=== PATIENT | female | born 1945 | race Caucasian/White ===

== ENCOUNTER 2019-08-30 17:08 | Inpatient (IN) | payer MEDICARE ==
[2019-08-30 17:52] VITALS: BMI 38.7
[2019-08-30 18:09] LABS: Absolute Lymphocytes (CBC) 1.8 K/uL (0.7-4.9); Basophils % 1.2 % (0-1.3); Hematocrit 39.7 % (36.0-45.0); Lymphocytes % 26.4 % (15.3-44.8); MPV 9.8 fL (7.6-11.3); RBC Red Blood Cell Count 4.33 M/uL (3.86-4.86)
[2019-08-30] MEDS: RIVAROXABAN 20 MG TABLET PO SCH (18:15)
[2019-08-30] MEDS: SOTALOL HCL 80 MG TAB PO SCH (18:15)
[2019-08-30 18:49] LABS: ALT/SGPT 35 U/L (12-78); AST/SGOT 20 U/L (15-37); Albumin 4.1 g/dL (3.4-5.0); Alkaline Phosphatase 70 U/L (45-117); BUN Blood Urea Nitrogen 21 mg/dL (7-18); Bicarbonate 25 mmol/L (21-32); Bilirubin Total 0.7 mg/dL (0.2-1.0); CKMB Creatine Kinase MB 1.4 ng/mL (0.3-3.6); Creatine Phosphokinase 70 U/L (26-192); Glucose Level 99 mg/dL (74-106); Magnesium 2.2 mg/dL (1.8-2.4); NT PRO-BNP 4380 pg/mL (<125); Protein, Total 7.5 g/dL (6.4-8.2); Sodium Level 142 mmol/L (136-145); Troponin I < 0.02 ng/mL (0.0-0.045)
--- NOTE | 2019-08-30 19:32 | RAD REPORT ---
EXAM DESCRIPTION: RAD - Chest Pa And Lat (2 Views) - 08/30/2019 6:44 pm CLINICAL HISTORY: Afib COMPARISON: June 2018 TECHNIQUE: Frontal and lateral views of the chest were obtained. FINDINGS: The lungs are normal volume. No new mass or consolidation. Numerous small granulomata agai n noted. Heart size is normal and central vasculature is within normal limits. No pleural effusion or pneumothorax seen. No acute bony finding noted. No aortic abnormality. IMPRESSION: No acute cardiopulmonary process. Numerous small granulomatous similar to comparison.
--- OUTSIDE RECORDS SUMMARY | 2019-08-30 19:58 | XMS REPORT | Clinical Summary ---
:1945 Author Organization [facility] Address [address] [place] [id number] Care Team Providers Name Role Phone Keyon Lopez MD Primary Care Provider Allergies No Known Allergies Medications Medication Sig Dispensed Refills Start Date End Date Status levothyroxine Take 25 mcg by 0 A ctive (SYNTHROID, LEVOXYL) 25 mouth every mcg tablet morning. At 6 am rivaroxaban (XARELTO) 20 Take 20 mg by 0 Active mg tablet mouth daily. amIODarone (PACERONE) Take 400 mg by 0 Active 400 MG tablet mouth daily. METOPROLOL SUCCINATE Take 25 mg by 0 Active ORAL mouth 2 (two) times a day. furosemide (LASIX) 20 mg Take 1 tablet 0 09/20/2016 Active tablet (20 mg total) by mouth daily. 2 tabs daily for 4 days then resume to 1 tab daily Active Problems Problem Noted Date Atrial fibrillation 09/19/2016 A-fib 05/25/2016 Immunizations Name Administration Dates Next Due FLUZONE QUAD PF 05/27/2016 Pneumococcal Conjugate 13-Valent 05/27/2016 Family History Medical History Relation Name Comments Stroke Father Hypertension Mother Stroke Mother Relation Name Status Comments Father Mother Social History Tobacco Use Types Packs/Day Years Used Date Former Smoker Comments: quit Alcohol Use Drinks/Week oz/Week Comments Yes 1 Glasses of wine 1.0 Sex Assigned at Date Recorded Not on file Job Start Date Occupation Industry Not on file Not on file Not on file Travel History Travel Start Travel End No recent travel history available. Last Filed Vital Signs Not on file Plan of Treatment Health Maintenance Due Date Last Done Comments BREAST CANCER SCREENING 1996 COLONOSCOPY SCREENING 1996 SHINGLES VACCINES (#1) 1996 65+ PNEUMOCOCCAL VACCINE (2 of 2 - PPSV23) 05/27/201705/27 INFLUENZA VACCINE 10/16/2019 05/27/2016 Results Not on fileafter 08/29/2018 Advance Directives For more information, please contact: [phone] Type Date Recorded Patient Hand Cigar Maker Explanati on Advance Directives, Living Will 09/19/2016 6:17 AM and Medical Power of Field Support Rep
[2019-08-30] MEDS ORDERED: ACETAMINOPHEN PO PRN (21:43)
[2019-08-30] MEDS ORDERED: PYRIDOXINE PO PRN (21:43)
[2019-08-30] MEDS ORDERED: DIPHENHYDRAMINE PO PRN (21:43)
[2019-08-30] MEDS ORDERED: MELATONIN PO PRN (21:43)
[2019-08-30] MEDS ORDERED: MELATONIN 5 MG TABLET PO PRN (23:53)
--- NOTE | 2019-08-31 02:08 | HP ---
Date of Admission: 08/30/2019 Chief Complaint: Shortness of breath and heart racing feeling. History Of Present Illness: This is a 74-year-old pleasant female patient with prior history of paroxysmal atrial fibrillation, takes metoprolol and Xarelto regularly with usual medications. The patient says that in last 3 weeks or so, she was feeling tired and short of breath with normal day-to-day activity. Her tiredness got better since she started doing some regular walking exercise in her house, but shortness of breath with day-to-day activity has not improved any at all. Denies any chest pain. No paroxysmal nocturnal dyspnea or orthopnea. Says that she has gained about 10 pounds weight lately and she bought a new blood pressure machine over the weekend as of Friday and she noted that her blood pressure monitor started reporting irregular heartbeat and her heart rate would go up to 140-150, usually at home. She came into office today. After she was evaluated, she was admitted to the hospital with atrial fibrillation with rapid ventricular rate. Her heart rate in the office was 163 per minute and it was irregular. She hemodynamically she was stable. Allergies: NO KNOWN ALLERGIES. Medications: Atorvastatin 10 mg daily, Caltrate plus D 1 tablet p.o. 2 times a day, Xarelto 20 mg p.o. daily in evening, metoprolol succinate 25 mg p.o. daily, levothyroxine 50 mcg p.o. daily. Review of Systems: Cardiovascular: As mentioned above. Constitutional: As mentioned above. Respiratory: As mentioned above. All other systems reviewed and negative. Past Medical History: Hypothyroidism, type 2 diabetes mellitus, pulmonary nodule, obstructive sleep apnea, hypertension, hyperlipidemia, paroxysmal atrial fibrillation, diverticulosis, osteoarthritis at multiple sites. Past Surgical History: Ablation done for atrial fibrillation in 2017 and hysterectomy. Family History: Father , had dementia, seizure and stroke. Mother , had stroke. Social History: Prior history of smoking, not at present time. Use of alcohol: Negative. Physical Examination: Vital Signs: At office, blood pressure 118/89, pulse 163, temperature 97.9, respiratory rate 16, weight 241 pounds, height 66 inches. General: Awake, alert, oriented, not in distress. HEENT: Head atraumatic, normocephalic. Conjunctivae nonerythematous. Sclerae white. Mouth, no thrush or edema noted. Ears/Nose, no mass, lesion, discharge noted. Neck: Supple. No JVD, lymph nodes, bruit, thyromegaly noted. Lungs: Bilateral good equal air entry. Clear to auscultation. No rhonchi. No rales. Heart/Cardiovascular: The patient's heart rate is rapid it is irregular. Abdomen: Soft, bowel sounds normal. No guarding, rigidity, tenderness, mass, hepatosplenomegaly, distention, or bruit noted. Extremities: No leg edema. No calf tenderness. Skin: No rash, ulcer, cellulitis. Lymphatics: No lymph node enlargement in neck, supraclavicular, infraclavicular region. Neuro: No focal neurological deficit. Chest: Unremarkable. External Genitalia: Deferred. Rectal: Deferred. Laboratory Data: EKG showing atrial fibrillation. White count 7, hemoglobin 13.2, platelets 205. Sodium 142, potassium 4, chloride 109, bicarb 25, glucose 99, BUN 21, creatinine 0.90, liver function tests normal, BNP 4380, TSH 3.310, CPK 70, CK-MB 1.4, troponin less than 0.02. Impression: 1. Atrial fibrillation with rapid ventricular rate. 2. Hypothyroidism. 3. Hypertension. 4. Hyperlipidemia. 5. Type 2 diabetes mellitus. 6. Hypothyroidism. 7. Obstructive sleep apnea. 8. Osteoarthritis, multiple sites. 9. Diverticulosis. Plan: Admit patient to hospital for further evaluation management of this problem. Patient is appropriate for inpatient and is expected to spend 2 midnights in hospital. We will keep her on ekg monitor tech. Cardiology consultation was requested from Dr. Noble and details were discussed with him. We will start patient on sotalol 80 mg twice a day first dose was given soon after admission. We will get echo with Doppler to evaluate her left ventricular ejection fraction. Xarelto will be continued per order and other home medications will be continued per order. Details and plan of treatment discussed with the patient. RADHA/MODL Voice ID: [id number] LIZETH
[2019-08-31] MEDS: LEVOTHYROXINE SOD 0.05 MG TABLET PO SCH (05:42)
[2019-08-31] MEDS ORDERED: ACETAMINOPHEN 500 MG TAB PO PRN (08:02)
[2019-08-31] MEDS ORDERED: DIPHENHYDRAMINE 25 MG TAB/CAP PO PRN (08:03)
[2019-08-31] MEDS: SOTALOL HCL 80 MG TAB PO SCH ×2 (08:43→20:52)
[2019-08-31] MEDS: RIVAROXABAN 20 MG TABLET PO SCH (16:26)
--- NOTE | 2019-08-31 17:29 | PN ---
Ms. Ladd was admitted to Dr. Lopez on 08/30/2015. I believe she was seen by Dr. Noble yesterday for a trial fibrillation, rapid ventricular response. She has atrial fibrillation, hypertension, dyslipide celina, diabetes, hypothyroidism, and sleep apnea. She was taken metoprolol and Xarelto at home, has de la rosa d an ablation for atrial fibrillation approximately 2 years ago, came back with atrial fibrillation, rate of 138. She is now on sotalol 80 b.i.d. Heart rate is 89, but remained in atrial fibrillation. Thyroid TSH is pending. Echocardiogram is pending. She is asymptomatic this morning, has only got ten 1 dose of sotalol. I think if she remains in atrial fibrillation despite sotalol therapy, we nitza uld plan a cardioversion in the morning. I will discuss the case further with Dr. Lopez. DEMETRA/NIRMAL Voice ID: [id number] Report ID: [id number]
--- NOTE | 2019-08-31 23:52 | PN ---
Date of Progress Note: 08/31/2019 Subjective: Patient was seen this morning for followup. Denies any chest pain, shortness of breath o vernight. Her heart rate is under better control. Still irregular in atrial fibrillation. Objective: Vital Signs: Reviewed. HEENT: Unremarkable. Lungs: Clear to auscultation. Heart: Sounds normal. Abdomen: Soft. Bowel sounds normal. No guarding, rigidity, tenderness, dist ention. Extremities: No leg edema. Impression: 1.Atrial fibrillation with rapid ventricular rate. 2.Hypertension. 3.Type 2 diabetes mellitus. 4.Hypothyroidism. Plan: We will continue current medication. Continue sotalol and Xarelto. Details were discussed wi Dr. Cary today and his plan is to do electrical cardioversion tomorrow if the patient remains i n atrial fibrillation. Patient is aware of treatment plan and recommendation from in service education teacher and s he is agreeable with that. RADHA/MODL Voice ID: [id number] Report ID: [id number]
[2019-09-01] MEDS: LEVOTHYROXINE SOD 0.05 MG TABLET PO SCH (05:51)
--- NOTE | 2019-09-01 06:29 | EKG ---
Test Date: 2019-08-30 Test Time: 18:23:56 Director Of Broadcast: MICHELLE MEASUREMENT RESULTS: Intervals: Rate: 122 VT: QRSD: 82 QT: 348 QTc: [address] [place]: P: VT: QRS: 7 T: 23 INTERPRETIVE STATEMENTS: Atrial fibrillation with rapid ventricular response Abnormal ECG Compared to ECG 05/25/2016 07:02:56 No significant changes Electronically Signed On 09-01-19 06:24:48 CDT by Antony Cary
--- NOTE | 2019-09-01 06:29 | EKG ---
Test Date: 2019-08-30 Test Time: 18:25:33 Furnace Mason: MICHELLE MEASUREMENT RESULTS: Intervals: Rate: 140 UT: QRSD: 82 QT: 260 QTc: 396 [place]: P: UT: QRS: 10 T: 27 INTERPRETIVE STATEMENTS: Atrial fibrillation with rapid ventricular response Nonspecific T wave abnormality, probably digitalis effect Abnormal ECG Compared to ECG 05/25/2016 07:02:56 T-wave abnormality now present Electronically Signed On 09-01-19 06:24:48 CDT by Antony Cary
[2019-09-01] MEDS: SOTALOL HCL 80 MG TAB PO SCH (07:20)
--- NOTE | 2019-09-01 08:16 | ECHO ---
HEIGHT: 5 ft 6 in WEIGHT: 240 lb 0 oz DATE OF STUDY: 08/31/[address]: Keyon Lopez MD 2-DIMENSIONAL: YES M.MODE: YES DOPPLER: YES COLOR FLOW: YES TDS: NO PORTABLE: NO DEFINITY: NO BUBBLE STUDY: NO DIAGNOSIS: CHEST PAIN CARDIAC HISTORY: CATHERIZATION: NO SURGERY: NO PROSTHETIC VALVE: NO PACEMAKER: NO MEASUREMENTS (cm) DIASTOLIC (NORMALS) SYSTOLIC (NORMALS) IVSd 1.1 (0.6-1.2) LA Diam 4.0 (1.9-4.0) LVEF 42% LVIDd 4.8 (3.5-5.7) LVIDs 3.8 (2.0-3.5) %FS 21% LVPWd 1.4 (0.6-1.2) Ao Diam 2.8 (2.0-3.7) 2 DIMENSIONAL ASSESSMENT: RIGHT ATRIUM: NORMAL LEFT ATRIUM: NORMAL RIGHT VENTRICLE: NORMAL LEFT VENTRICLE: NORMAL SIZE TRICUSPID VALVE: NORMAL MITRAL VALVE: MITRAL ANNULAR CALCIFICATION PULMONIC VALVE: NORMAL AORTIC VALVE: NORMAL PERICARDIAL EFFUSION: NONE AORTIC ROOT: NORMAL LEFT VENTRICULAR WALL MOTION: MILD GLOBAL HYPOKINESIS. DOPPLER/COLOR FLOW: MILD TRICUSPID. COMMENTS: MILD GLOBAL HYPOKINESIS. LEFT VENTRICULAR EJECTION FRACTION 42%.MILD TRICUSPID REGURGITATION. NORMAL RIGHT VENTRICULAR SYSTOLIC PRESSURE. ATRIAL FIBRILLATION. MITRAL ANNULAR CALCIFICATION. TECHNOLOGIST: Gilmar KYLE
[2019-09-01] MEDS ORDERED: MIDAZOLAM HCL 2 MG/2 ML INJ ONE (10:20)
[2019-09-01] MEDS ORDERED: MIDAZOLAM HCL 5 MG/5 ML INJ ONE (10:20)
[2019-09-01] MEDS ORDERED: NA CHLORIDE 0.9% 500 ML ONE (10:20)
[2019-09-01] MEDS ORDERED: ATROPINE SULF 1 MG/10 ML SYR IV ONE (10:21)
--- NOTE | 2019-09-01 11:09 | OP ---
Date of Procedure: 09/01/2019 Surgeon: Antony Cary MD Under Seal Operator: Shanell Canales. The patient admitted to Dr. Lopez on 08/30/2019 for recurrent atrial fibrillation status post ablation in the past. She was switched from the from metoprolol to sotalol 80 b.i.d., received a total of 4 dosages, but continued to be in atrial fibrillation with rate between 90 and 110, brought to the dock or pier laborer today as an inpatient. She received 7 mg of Versed IV push for sedation. She received 1 shock with 200 joules and converted to sinus rhythm. There were no complications or blood loss. Postoperative Diagnosis: Status post successful direct current cardioversion of atrial fibrillation to sinus rhythm. She will go home on her home medication except instead of the metoprolol she will b e on sotalol 80 b.i.d. Continue Xarelto. Anesthesia: Total conscious sedation was 30 minutes. Plan: The patient will be going home today. I will discuss the case further with Dr. Lopez. She lonnie l see me in the office in 2 weeks. DEMETRA/NIRMAL Voice ID: [id number] Report ID: [id number]
[2019-09-01 11:27] VITALS: TEMP 97
[2019-09-01 13:45] VITALS: BP 116/68; O2SAT 94
--- NOTE | 2019-09-02 02:37 | DS ---
Date of Discharge: 09/01/2019 Disposition: Discharged to go home. Physical Examination: HEENT: Unremarkable. Lungs: Clear to auscultation. Cardiac: Heart sounds normal. Abdomen: Soft, bowel sounds normal. No guarding, rigidity, tenderness, or distention. Extremities: No leg edema. Discharge Medications And Instructions: 1.Continue all prior home medications except stop metoprolol. 2.Start sotalol 80 mg 1 tablet by mouth 2 times a day and prescription was given to patient by Dr. Alhaji low. 3.Follow up at my office next week on Friday or Friday. 4.Follow up with Dr. Cary as per his instruction. Hospital Course: Ms. Ladd is a very pleasant 74-year-old female patient admitted to the hospital with shortness of breath and heart racing feeling. Please see dictated H and P for more information. Dougie glaser was evaluated at office and after she was evaluated she was admitted to the hospital with atria l fibrillation with rapid ventricular rate and was symptomatic with this problem. She is on chronic anticoagulation therapy, Xarelto which was continued during this hospitalization. At home, she was t aking metoprolol, which was discontinued and she was started on sotalol 80 mg twice a day. After 4 d oses of sotalol, she did not convert to sinus rhythm, so Dr. Cary took her to cardiac worm farm laborer thi s morning and perform electrical cardioversion, which helped to convert her to sinus rhythm. Patient was medically stable for discharge and I will continue to see her on outpatient basis. Final Diagnoses: 1.Atrial fibrillation with rapid ventricular rate, converted to sinus rhythm with electrical cardiov ersion. 2.Hypothyroidism. 3.Hypertension. 4.Hyperlipidemia. 5.Type 2 diabetes mellitus. 6.Obstructive sleep apnea. 7.Osteoarthritis, multiple sites. 8.Diverticulosis. Laboratory Data: Labs done during this hospitalization: White count 7, hemoglobin 13.2, platelets 2 05. Sodium 142, potassium 4, chloride 109, bicarb 25, glucose 99, BUN 21, creatinine 0.90. Liver fu nction tests normal. TSH 3.310 and troponin less than 0.02. RADHA/MODL Voice ID: [id number] Report ID: [id number]
--- NOTE | 2019-09-02 07:26 | EKG ---
Test Date: 2019-09-01 Test Time: 10:52:42 Meat Boner: AGUS MEASUREMENT RESULTS: Intervals: Rate: 76 NH: 236 QRSD: 84 QT: 434 QTc: 488 [place]: P: 72 NH: 236 QRS: 23 T: 44 INTERPRETIVE STATEMENTS: Sinus rhythm with 1st degree AV block Low voltage QRS Prolonged QT Abnormal ECG Compared to ECG 08/30/2019 18:25:33 First degree AV block now present Low QRS voltage now present Prolonged QT interval now present Atrial fibrillation no longer present T-wave abnormality no longer present Electronically Signed On 09-02-19 07:24:17 CDT by Antony Cary
== END 2019-09-01 13:53 | disposition home or self-care (01) | DRG 310 ==
LOC: 2ND 17:08
PROVIDERS: ADMIT Internal Medicine; ATTEND Internal Medicine
PROC: 5A2204Z Restoration of Cardiac Rhythm, Single (ICD-10-PCS; principal; 2019-09-01)
DX: I48.91 Unspecified atrial fibrillation (principal); E03.9 Hypothyroidism, unspecified; I10 Essential (primary) hypertension; E78.5 Hyperlipidemia, unspecified; E11.9 Type 2 diabetes mellitus without complications; G47.33 Obstructive sleep apnea (adult) (pediatric); M19.90 Unspecified osteoarthritis, unspecified site; K57.90 Diverticulosis of intestine, part unspecified, without perforation or abscess without bleeding; Z79.01 Long term (current) use of anticoagulants; Z79.890 Hormone replacement therapy; Z79.899 Other long term (current) drug therapy; Z90.710 Acquired absence of both cervix and uterus
CPT/HCPCS: 36415; 71046; 80053; 80061; 82550; 82553; 83735; 83880; 84443; 84484; 85025; 92960; 93005; 93306; J2250; J7040; U0002

== ENCOUNTER 2020-03-27 15:08 | Observation (INO) | payer MEDICARE ==
--- OUTSIDE RECORDS SUMMARY | 2020-03-27 15:09 | XMS REPORT | Clinical Summary ---
:1945 Author Organization [facility] Address [address] [place] [address] Care Team Providers Name Role Phone Keyon Lopez MD Primary Care Provider Allergies No Known Active Allergies Medications Medication Sig Dispensed Refills Start [...] QUAD PF 05/27/2016 Pneumococcal Conjugate 13-Valent 05/27/2016 Surgical History Surgery Date Site/Laterality Comments CARDIAC ELECTROPHYSIOLOGY 05/27/2016 N/A Proced ure: Ep cardioversion PROCEDURE w sudhakar; Surgeon: Yariel George Jr., MD; Location: [facility] [place] [facility]; Servi ce: Cardiovascular; Laterality: N/A; HYSTERECTOMY partial CARDIAC ELECTROPHYSIOLOGY 09/19/2016 N/A Proced ure: Ep ablation PROCEDURE flutter; Surgeo n: Ruperto Nieto MD; Location: [facility] [place] [facility]; Servi ce: Cardiovascular; Laterality: N/A; CARDIAC ELECTROPHYSIOLOGY 09/19/2016 N/A Proced ure: Ep complete ep PROCEDURE study w ablation pulmonary vein; Surgeon: Ruperto Nieto MD; Location: [facility] [place] [facility] Location; [facility] ce: Cardiovascular; Laterality: N/A; Medical History Medical History Date Comments Arrhythmia Hypertension Family History Medical History Relation Name Comments Stroke Father Hypertension Mother Stroke Mother Relation Name Status Comments Father Mother Social History Tobacco Use Types Packs/Day Years Used Date Former Smoker Comments: quit Alcohol Use Drinks/Week oz/Week Comments Yes 1 Glasses of wine 1.0 Sex Assigned at Date Recorded Not on file Last Filed Vital Signs Not on file Plan of Treatment Health Maintenance Due Date Last Done Comments COVID-19 VACCINE (#1) 1962 BREAST CANCER SCREENING 1996 COLONOSCOPY SCREENING 1996 SHINGLES VACCINES (#1) 1996 65+ PNEUMOCOCCAL VACCINE (2 of 2 - PPSV23) 05/27/201705/27 INFLUENZA VACCINE 10/16/2019 05/27/2016 Results Not on fileafter 03/27/2019 Advance Directives For more information, please contact: [phone] Type Date Recorded Patient Dye Line Operator Explanati on Advance Directives, Living Will 09/19/2016 6:17 AM and Medical Power of Manager Of Investigations
--- NOTE | 2020-03-27 15:39 | RAD REPORT ---
EXAM DESCRIPTION: CT - Ct Stroke Brain Wo Cont - 03/27/2020 3:33 pm CLINICAL HISTORY: APHASIA Headache, drowsiness COMPARISON: No comparisons TECHNIQUE: All CT scans are performed using dose optimization technique as appropriate and may inclu de automated exposure control or mA/KV adjustment according to patient size. FINDINGS: No intracranial hemorrhage, hydrocephalus or extra-axial fluid collection.No areas of brai n edema or evidence of midline shift. The paranasal sinuses and mastoids are clear. The calvarium is intact. IMPRESSION: No acute intracranial abnormality. The findings were discussed with Dr. Cortes in the ER On 03/27/2020 at 3:35 p.m. by telephone.
[2020-03-27 15:46] LABS: Absolute Lymphocytes (CBC) 2.1 K/uL (0.7-4.9); Basophils % 1.1 % (0-1.3); Hematocrit 42.3 % (36.0-45.0); Lymphocytes % 20.1 % (15.3-44.8); MPV 9.3 fL (7.6-11.3); RBC Red Blood Cell Count 4.67 M/uL (3.86-4.86)
[2020-03-27 15:51] LABS: Protime INR 1.91
[2020-03-27 15:55] LABS: Potassium 3.6 mmol/L (3.5-5.1)
--- NOTE | 2020-03-27 16:10 | RAD REPORT ---
EXAM DESCRIPTION: RAD - Chest Single View - 03/27/2020 4:01 pm CLINICAL HISTORY: aphasia Chest pain. COMPARISON: Chest Pa And Lat (2 Views) dated 08/30/2019; Chest Pa And Lat (2 Views) dated 06/16/2018; C hest Single View dated 05/23/2016; Chest Single View dated 05/23/2016; Thorax Wo Con dated 10/29/2016 FINDINGS: Portable technique limits examination quality. Numerous pulmonary nodules are again seen bilaterally. No focal infiltrate detected. The heart is mil dly enlarged in size with a tortuous thoracic aorta.
--- NOTE | 2020-03-27 16:45 | ER ---
Nurse's Notes [facility] Name: Janette Ladd Age: 74 yrs Sex: Female : 1945 Arrival Date: 03/27/2020 Time: 15:09 Bed 26 Private MD: Diagnosis: Transient cerebral ischemic attack, unspecified Presentation: 03/27 15:11 Chief complaint: EMS states: Yesterday at 1500, difficulty talking and forming words, ca1 which has resolved. Also had a headache, took Tylenol with relief. Today at 1300, while talking to a friend symptoms started again and friend reported pt stuttering. Symptoms resolved upon EMS arrival on scene. Pt A\T\Ox4, Negative slurring in triage. VAN negative. Coronavirus screen: Client denies travel out of the [place] in the last 14 days. At this time, the client does not indicate any symptoms associated with coronavirus-19. Ebola Screen: Patient negative for fever greater than or equal to 101.5 degrees Fahrenheit, and additional compatible Ebola Virus Disease symptoms Patient denies exposure to infectious person. Patient denies travel to an Ebola-affected area in the 21 days before illness onset. No symptoms or risks identified at this time. Initial Sepsis Screen: Does the patient meet any 2 criteria? No. Patient's initial sepsis screen is negative. Does the patient have a suspected source of infection? No. Patient's initial sepsis screen is negative. Risk Assessment: Do you want to hurt yourself or someone else? Patient reports no desire to harm self or others. Onset of symptoms was March 27, 2020 at 13:00. 15:11 Method Of Arrival: EMS: [facility] ca1 15:11 Acuity: LARRY 2 ca1 15:11 Care prior to arrival: Glucose check: 126. ca1 15:11 No acute neurological deficit is noted. The patients blood glucose was checked before ca1 arriving to the hospital and was found to be normal. Triage Assessment: 15:22 General: Appears in no apparent distress. comfortable, Behavior is calm, cooperative, ca1 appropriate for age. Pain: Denies pain. EENT: No signs and/or symptoms were reported regarding the EENT system. Neuro: Level of Consciousness is awake, alert, obeys commands, Oriented to person, place, time, situation, Revenue Manager are equal bilaterally Moves all extremities. Gait is steady, Speech is normal, Facial symmetry appears normal, Pupils are PERRLA. Stroke Activation: Symptom onset < 3 hours Physician: Stroke Attending; Name: ; Notified At: ; Arrived At: Physician: Chief Stroke Resident; Name: ; Notified At: ; Arrived At: Physician: Stroke Resident; Name: ; Notified At: ; Arrived At: Physician: ED Attending; Name: ; Notified At: ; Arrived At: Physician: ED Resident; Name: ; Notified At: ; Arrived At: Historical: - Allergies: 15:22 No Known Allergies; ca1 - Home Meds: 15:22 Sotalol Oral [Active]; levothyroxine oral [Active]; Xarelto oral oral [Active]; ca1 - PMHx: 15:22 Hypertension; Thyroid problem; Atrial Fib; ca1 - PSHx: 15:22 Hysterectomy; ca1 - Immunization history:: Adult Immunizations up to date, Pneumococcal vaccine is up to date, Flu vaccine is up to date. - Social history:: Smoking status: Patient denies any tobacco usage or history of. Screenin:15 Abuse screen: Denies threats or abuse. Nutritional screening: No deficits noted. vg1 Tuberculosis screening: No symptoms or risk factors identified. Fall Risk No fall in past 12 months (0 pts). No secondary diagnosis (0 pts). IV access (20 points). Ambulatory Aid- None/Bed Rest/Nurse Assist (0 pts). Gait- Normal/Bed Rest/Wheelchair (0 pts) Mental Status- Oriented to own ability (0 pts). Total Del Cid Fall Scale indicates No Risk (0-24 pts). Assessment: 15:11 VAN Scoring: Arm Drift: Patients demonstrates NO arm weakness. Patient is VAN Negative. ca1 15:15 General: Appears in no apparent distress. comfortable, Behavior is calm, cooperative. vg1 Pain: Denies pain. Neuro: Level of Consciousness is awake, alert, obeys commands, Oriented to person, place, time, Revenue Manager are equal bilaterally Speech is normal, Facial symmetry appears normal. 15:15 Cardiovascular: Patient's skin is warm and dry. Respiratory: Airway is patent vg1 Respiratory effort is even, unlabored, Respiratory pattern is regular, symmetrical. GI: No signs and/or symptoms were reported involving the gastrointestinal system. : No signs and/or symptoms were reported regarding the genitourinary system. EENT: No signs and/or symptoms were reported regarding the EENT system. Derm: Skin is intact, is healthy with good turgor. Musculoskeletal: Circulation, motion, and sensation intact. 15:32 Patient has been NPO before screening. The patient is alert, and able to follow ca1 commands. The patient does not exhibit slurred or garbled speech. The patient is not exhibiting difficulty speaking. The patient does not exhibit difficulty understanding words. The patient is able to swallow own secretions with no drooling or need for suction. Patient tolerated one teaspoon of water. No drooling, immediate coughing, gurgling, or clearing of the throat was noted. The patient tolerated 90mL of water. No drooling, immediate coughing, gurgling, or clearing of the throat was noted. The patient passed the bedside swallow screening. Oral medications may be given as ordered. Contact Physician for further diet orders. Provider notified of bedside swallow screening results: Aba Garvey TITLE INSPECTOR. 16:00 Reassessment: Patient appears in no apparent distress at this time. Patient is alert, vg1 oriented x 3, equal unlabored respirations, skin warm/dry/pink. Patient denies pain at this time. Patient states feeling better. 17:00 Reassessment: No changes from previously documented assessment. vg1 18:00 Reassessment: No changes from previously documented assessment. vg1 19:00 Reassessment: Patient appears in no apparent distress at this time. Patient is alert, vg1 oriented x 3, equal unlabored respirations, skin warm/dry/pink. Patient denies pain at this time. Patient states feeling better. 20:04 Reassessment: No changes from previously documented assessment. vg1 Vital Signs: 15:00 BP 156 / 94; Pulse 93; Resp 18; Pulse Ox 97% on R/A; vg1 15:11 BP 156 / 94; Pulse 75; Resp 15 S; Temp 98(O); Pulse Ox 99% on R/A; Weight 111.13 kg ca1 (R); Height 5 ft. 6 in. (167.64 cm) (R); Pain 0/10; 16:00 BP 147 / 94; Pulse 97; Resp 20; Pulse Ox 97% on R/A; vg1 17:00 BP 144 / 90; Pulse 100; Resp 22; Pulse Ox 97% on R/A; vg1 18:00 BP 141 / 91; Pulse 98; Resp 20; Pulse Ox 95% on R/A; vg1 19:00 BP 118 / 68; Pulse 97; Resp 20; Pulse Ox 98% on R/A; vg1 20:03 BP 118 / 68; Pulse 97; Resp 18; Pulse Ox 98% on R/A; vg1 15:11 Body Mass Index 39.54 (111.13 kg, 167.64 cm) ca1 NIH Stroke Scale Scores: 15:25 NIHSS Score: 0 pm1 ED Course: 15:09 Patient arrived in ED. ds1 15:10 Irma Ramsey, RN is Primary Nurse. vg1 15:12 Aba Garvey NP is PHCP. pm1 15:12 Shaji Cortes MD is Attending Physician. pm1 15:15 Patient has correct armband on for positive identification. Bed in low position. Call vg1 light in reach. Side rails up X2. hospital monitor on. Pulse ox on. NIBP on. 15:20 Triage completed. ca1 15:22 Arm band placed on right wrist. ca1 15:33 CT Stroke Brain w/o Contrast In Process Unspecified. EDMS 16:00 Inserted saline lock: 20 gauge in left antecubital area, using aseptic technique. vg1 Flushed left antecubital with 5 ml normal saline. 16:01 Stroke CXR 1 View In Process Unspecified. EDMS 16:44 Mitzi Lopez MD is Hospitalizing Provider. pm1 17:11 Initial lab(s) drawn, by pa, sent to lab. vg1 19:54 No provider procedures requiring assistance completed. Patient admitted, IV remains in vg1 place. Administered Medications: 17:05 Drug: foLIC Acid 1 mg Route: IVPB; Site: left antecubital; vg1 19:14 Follow up: Response: No adverse reaction; IV Status: Completed infusion vg1 Outcome: 16:44 Decision to Hospitalize by Provider. pm1 19:54 Admitted to Tele accompanied by [facility], via wheelchair, room 217, with chart, Report vg1 called to Kendy MORENO 19:54 Condition: stable 19:54 Instructed on the need for admit. 20:19 Patient left the ED. mw2 NIH Stroke Scale - NIH Stroke Score Date: 03/27/2020 Time: 15:25 Total Score = 0 1a. Level of Consciousness (LOC) - 0(Alert) 1b. Level of Consciousness (LOC) (Year \T\ Age) - 0(Both) 1c. LOC Commands (Open \T\ Closes Eyes/Paving Crew Foreman) - 0(Both) 2. Best Gaze (Lateral Gaze Paresis) - 0(Normal) 3. Visual Field Loss - 0(No visual loss) 4. Facial Palsy - 0(Normal) 5a. Left Arm: Motor (10-second hold) - 0(No drift) 5b. Right Arm: Motor (10-second hold) - 0(No drift) 6a. Left Leg: Motor (5-second hold - always test supine) - 0(No drift) 6b. Right Leg: Motor (5-second hold - always test supine) - 0(No drift) 7. Limb Ataxia (finger/nose \T\ heel/kunz - test with eyes open) - 0(Absent) 8. Sensory Loss (pinprick arms/legs/face) - 0(Normal) 9. Best Language: Aphasia (description/naming/reading) - 0(No aphasia) 10. Dysarthria (speech clarity - read or repeat words) - 0(Normal) 11. Extinction and Inattention (visual/tactile/auditory/spatial/personal) - 0(No abnormality) Initials: pm1 Signatures: Dispatcher [employer] [facility] Jeanna Flores ds1 Aba Garvey, TITLE INSPECTOR TITLE INSPECTOR pm1 Payam Beal mw2 Peace Millard RN RN ca1 Irma Ramsey RN RN vg1 Corrections: (The following items were deleted from the chart) 16:04 15:15 Stroke Activation: Symptom onset < 3 hours ca1 ca1
--- NOTE | 2020-03-27 16:45 | EDPHYS ---
Physician Documentation [facility] Name: Janette Ladd Age: 74 yrs Sex: Female : 1945 Arrival Date: 03/27/2020 Time: 15:09 Bed 26 Private MD: ED Physician Shaji Cortes HPI: 03/27 15:25 This 74 yrs old Female presents to ER via EMS with complaints of Resolved pm1 Stroke S/S. 15:25 The patient's problem is reported as Aphasia. Onset: The symptoms/episode pm1 began/occurred yesterday, at 15:00. Context: the episode(s) was witnessed, by family, sister, occurred at home, occurred while the patient was Talking with her sister. The symptoms are alleviated by self resolved with time. After onset of symptoms yesterday, patient sat down and watched TV. Aphasia resolved after 30 minutes. Today patient was talking to her sister at 1300 and she had aphasia for 5 minutes. No other symptoms. No headache today as yesterday. Arrived to the ER without any symptoms. The symptoms are aggravated by nothing. Associated signs and symptoms: Pertinent positives: Headache yesterday, Pertinent negatives: abdominal pain, chest pain, nausea, numbness, shortness of breath, tingling, vomiting, weakness. Severity of symptoms: in the emergency department the symptoms have resolved Pain is currently a 0 / 10. Patient's baseline: Neuro: alert and fully oriented, Motor: no deficits, Ambulation: walks without assistance, Speech: normal, The patient has a previous history of atrial fibrillation . The patient has not experienced similar symptoms in the past. The patient has not recently seen a physician, the patient's primary care provider is Dr. Lopez, Transfer Station Attendant - [facility]. 15:25 Patient took aspirin 325 mg at home after onset of symptoms today. pm1 Historical: - Allergies: 15:22 No Known Allergies; ca1 - Home Meds: 15:22 Sotalol Oral [Active]; levothyroxine oral [Active]; Xarelto oral oral [Active]; ca1 - PMHx: 15:22 Hypertension; Thyroid problem; Atrial Fib; ca1 - PSHx: 15:22 Hysterectomy; ca1 - Immunization history:: Adult Immunizations up to date, Pneumococcal vaccine is up to date, Flu vaccine is up to date. - Social history:: Smoking status: Patient denies any tobacco usage or history of. ROS: 15:25 Constitutional: Negative for fever, chills, and weight loss, Eyes: Negative for injury, pm1 pain, redness, and discharge, ENT: Negative for injury, pain, and discharge, Neck: Negative for injury, pain, and swelling, Cardiovascular: Negative for chest pain, palpitations, and edema, Respiratory: Negative for shortness of breath, cough, wheezing, and pleuritic chest pain, Abdomen/GI: Negative for abdominal pain, nausea, vomiting, diarrhea, and constipation, Back: Negative for injury and pain, MS/Extremity: Negative for injury and deformity, Skin: Negative for injury, rash, and discoloration. 15:25 Neuro: Positive for headache, aphasia, Negative for dizziness, numbness, syncope, near syncope, tingling, weakness. Exam: 15:35 Radiologist reports: No acute findings pm1 15:35 Constitutional: This is a well developed, well nourished patient who is awake, alert, and in no acute distress. Head/Face: Normocephalic, atraumatic. 15:35 Cardiovascular: Regular rate and rhythm with a normal S1 and S2. No gallops, murmurs, or rubs. Normal PMI, no JVD. No pulse deficits. Respiratory: Lungs have equal breath sounds bilaterally, clear to auscultation and percussion. No rales, rhonchi or wheezes noted. No increased work of breathing, no retractions or nasal flaring. 15:35 Back: No spinal tenderness. No costovertebral tenderness. Full range of motion. Skin: Warm, dry with normal turgor. Normal color with no rashes, no lesions, and no evidence of cellulitis. MS/ Extremity: Pulses equal, no cyanosis. Neurovascular intact. Full, normal range of motion. 15:35 Eyes: Periorbital structures: appear normal, Pupils: no acute changes, Extraocular movements: intact throughout, Conjunctiva: normal, Lids and lashes: no acute changes. 15:35 Neck: Exam negative for acute changes. 15:35 Abdomen/GI: Inspection: abdomen appears normal, Palpation: abdomen is soft and non-tender, in all quadrants. 15:35 Neuro: Exam negative for acute changes, Orientation: is normal, Mentation: is normal, Cranial nerves: CN II- XII are normal as tested, Motor: moves all fours, strength is 5/5 in all extremities, Sensation: is normal, no obvious gross deficits. Vital Signs: 15:00 BP 156 / 94; Pulse 93; Resp 18; Pulse Ox 97% on R/A; vg1 15:11 BP 156 / 94; Pulse 75; Resp 15 S; Temp 98(O); Pulse Ox 99% on R/A; Weight 111.13 kg ca1 (R); Height 5 ft. 6 in. (167.64 cm) (R); Pain 0/10; 16:00 BP 147 / 94; Pulse 97; Resp 20; Pulse Ox 97% on R/A; vg1 17:00 BP 144 / 90; Pulse 100; Resp 22; Pulse Ox 97% on R/A; vg1 18:00 BP 141 / 91; Pulse 98; Resp 20; Pulse Ox 95% on R/A; vg1 19:00 BP 118 / 68; Pulse 97; Resp 20; Pulse Ox 98% on R/A; vg1 20:03 BP 118 / 68; Pulse 97; Resp 18; Pulse Ox 98% on R/A; vg1 15:11 Body Mass Index 39.54 (111.13 kg, 167.64 cm) ca1 NIH Stroke Scale Scores: 15:25 NIHSS Score: 0 pm1 MDM: 15:12 Patient medically screened. pm1 16:17 ED course: Patient reports home medications to me: Levothyroxine 50 mcg daily, Sotalol pm1 20 mg BID, and Xarelto 20 mg daily. 16:34 Physician consultation: Foster Matias MD was called at 16:34, was contacted at 16:34, pm1 regarding consult, patient's condition, and will see patient in ED, later today, would like further tests performed, Carotid Doppler, MRI brain, and Echocardiogram. 16:42 Data reviewed: vital signs. Data interpreted: Pulse oximetry: on room air is 97 %. pm1 Interpretation: normal. 16:43 Counseling: I had a detailed discussion with the patient and/or guardian regarding: the pm1 historical points, exam findings, and any diagnostic results supporting the discharge/admit diagnosis, lab results, radiology results, the need for further work-up and treatment in the hospital. 16:50 Physician consultation: Mitzi Lopez MD was called at 16:42, was contacted at 16:50, pm1 regarding admission, patient's condition, and will see patient. 03/27 15:21 Order name: Basic Metabolic Panel; Complete Time: 16:00 pm1 03/27 15:21 Order name: CBC with Diff; Complete Time: 16:01 pm1 03/27 15:21 Order name: Protime (+inr); Complete Time: 16:01 pm1 03/27 15:21 Order name: Ptt, Activated; Complete Time: 16:01 pm03/27 16:17 Order name: Glucose, Ancillary Testing; Complete Time: 16:27 EDMS 03/27 16:28 Order name: TSH; Complete Time: 16:57 pm1 03/27 15:21 Order name: CT Stroke Brain w/o Contrast; Complete Time: 16:00 pm1 03/27 15:21 Order name: Stroke CXR 1 View; Complete Time: 16:14 pm1 03/27 15:21 Order name: EKG; Complete Time: 15:22 pm1 03/27 15:21 Order name: Accucheck; Complete Time: 16:10 pm03/27 15:21 Order name: Cardiac monitoring; Complete Time: 16:10 pm03/27 16:45 Order name: COVID-19 pm03/27 18:23 Order name: SARS-COV-2 RT PCR; Complete Time: 18:30 EDMS 03/27 15:21 Order name: EKG - Nurse/Tech; Complete Time: 15:51 pm1 03/27 15:21 Order name: IV Saline Lock; Complete Time: 16:10 pm03/27 15:21 Order name: Labs collected and sent; Complete Time: 15:35 pm03/27 15:21 Order name: NPO; Complete Time: 15:35 pm03/27 15:21 Order name: O2 Per Protocol; Complete Time: 15:35 pm03/27 15:21 Order name: O2 Sat Monitoring; Complete Time: 15:35 pm03/27 15:21 Order name: Stroke Swallow Screen; Complete Time: 15:35 pm1 Administered Medications: 17:05 Drug: foLIC Acid 1 mg Route: IVPB; Site: left antecubital; vg1 19:14 Follow up: Response: No adverse reaction; IV Status: Completed infusion vg1 Disposition: 03/28 07:28 Co-signature as Attending Physician, Shaji Cortes MD I agree with the assessment and kdr plan of care. Disposition: 03/27/20 16:44 Hospitalization ordered by Mitzi Lopez for Observation. Preliminary diagnosis is Transient cerebral ischemic attack, unspecified. - Bed requested for Telemetry/MedSurg (observation). - Status is Observation. mw2 - Condition is Stable. - Problem is new. - Symptoms are resolved. NIH Stroke Scale - NIH Stroke Score Date: 03/27/2020 Time: 15:25 Total Score = 0 1a. Level of Consciousness (LOC) - 0(Alert) 1b. Level of Consciousness (LOC) (Year \T\ Age) - 0(Both) 1c. LOC Commands (Open \T\ Closes Eyes/Research Environmental Scientist) - 0(Both) 2. Best Gaze (Lateral Gaze Paresis) - 0(Normal) 3. Visual Field Loss - 0(No visual loss) 4. Facial Palsy - 0(Normal) 5a. Left Arm: Motor (10-second hold) - 0(No drift) 5b. Right Arm: Motor (10-second hold) - 0(No drift) 6a. Left Leg: Motor (5-second hold - always test supine) - 0(No drift) 6b. Right Leg: Motor (5-second hold - always test supine) - 0(No drift) 7. Limb Ataxia (finger/nose \T\ heel/kunz - test with eyes open) - 0(Absent) 8. Sensory Loss (pinprick arms/legs/face) - 0(Normal) 9. Best Language: Aphasia (description/naming/reading) - 0(No aphasia) 10. Dysarthria (speech clarity - read or repeat words) - 0(Normal) 11. Extinction and Inattention (visual/tactile/auditory/spatial/personal) - 0(No abnormality) Initials: pm1 Signatures: Dispatcher [employer] EDShaji Blanton MD MD kdr Christin Ramsey, TIFFANIE RN cg Aba Garvey, RAJWINDER CAUL DRESSER pm1 Payam Beal mw2 Peace Millard RN RN ca1 Irma Ramsey RN RN vg1 Corrections: (The following items were deleted from the chart) 03/27 19:41 16:44 Hospitalization Ordered by Mitzi Lopez MD for Observation. Preliminary cg diagnosis is Transient cerebral ischemic attack, unspecified. Bed requested for Telemetry/MedSurg (observation). Status is Observation. Condition is Stable. Problem is new. Symptoms are resolved. pm1 20:19 19:41 03/27/2020 16:44 Hospitalization Ordered by A John CRAFT for Observation. mw2 Preliminary diagnosis is Transient cerebral ischemic attack, unspecified. Bed requested for Telemetry/MedSurg (observation). Status is Observation. Condition is Stable. Problem is new. Symptoms are resolved. cg
[2020-03-27] MEDS ORDERED: FOLIC ACID 5 MG/ML VIAL ONE (17:07)
[2020-03-27] MEDS ORDERED: SOTALOL HCL 80 MG TAB PO SCH (19:25)
[2020-03-27] MEDS: NA CHLORIDE 0.9% 1,000 ML IV SCH (21:09)
[2020-03-27 22:46] VITALS: BMI 39.5
--- NOTE | 2020-03-28 01:27 | CON ---
Date of Consultation: 03/27/2020 Time: 2039. Reason: TIA. History: This is a 74-year-old patient with history of diabetes, hypothyroidism, atrial fibrillation , presented to the emergency department today with recurrent episodes of speech difficulty. She was well until yesterday. Her sister is visiting her from out of town in [place] and about 1500 patien t noticed that she felt confused and her speech was dysarthric and slurred. In addition to the dysar thria, she had moderate word-finding problems. She feels like the episode resolved or at least large ly resolved by about 1700 that day and so she went to bed, but she slept from 5:00 p.m. until 7:00 a. m. or 8:00 a.m. today and got out of bed and she felt well and her speech was fluent and clear, but t hen again this afternoon at about 1300, patient had recurrent dysarthria and a sense of feeling confu sed as well as actually stating the incorrect word, aphasia, some associated headache, especially yes terday, quite as prominent today. No palpitations. No dyspnea. No extremity weakness. No vision l oss. No neck pain. We decided that she should come to the emergency department. She took an aspiri n at home. She is normally on Xarelto as well as sotalol and levothyroxine. Workup in the emergency department was unrevealing. CT scan of the brain was unremarkable. Chest x-ray demonstrated multip le pulmonary nodules and those have been noted as far back as 2013 as well as 2017. She feels well o r mostly well right now, although she still does admit to having some mild confusion and slight word- finding problems. Consultation was requested. Past Medical History: As alluded to diabetes, paroxysmal atrial fibrillation, hypothyroidism. Routine Home Medications: Sotalol, Xarelto, melatonin, levothyroxine, furosemide. Allergies: NONE. Social History: Used to drink. Denies drinking currently. Normally independent with activities of daily living. Family History: Noncontributory. Review of Systems: General: She is chronically ill, but not acutely so. Eyes: No vision loss. Ears, Nose, Throat: Dysarthria as noted. Cardiovascular: Paroxysmal atrial fibrillation as noted. Pulmonary: Pulmonary nodules. GI: Negative. : Negative. Musculoskeletal: Negative. Neurologic: As noted. Psychiatric: Negative. Endocrine: Diabetes. Physical Examination: Vital Signs: 97, 18, 118/68. She is a pleasant lady, who is lying in bed, in no distress. Heart: Sinus rhythm, no carotid bruits. Lungs: Clear. Abdomen: Soft, bowel sounds present. She is awake, alert, oriented to time, person, place, and situ ation. No aphasia. No dysarthria noted presently. Pupils equal, round, reactive. Ocular motion fu ll without nystagmus. Visual davila full to confrontation bilaterally. Facial strength and sensatio n are normal. Tongue protrudes evenly. Soft palate elevates symmetrically bilaterally. Extremities: Strength full. Sensation decreased symmetrically distally. It has been a long-standin g feature/finding on exam for her as I have seen her in the past as well. Reflexes are 1/4 in the ar ms, trace in the legs. Toes are downgoing. Cerebellar exam demonstrates no ataxia. Pertinent Labs: CBC is normal. INR is 1.9, PT is 22, elevated creatinine is 0.83, glucose 170, COVI D negative. TSH normal at 0.919. CT scan of the brain and chest x-ray as noted in history. Impression: Probable transient ischemic attack. Plan: Given the recurrent episodes despite systemic anticoagulation, I think the patient does need t o continue to be observed in the hospital setting at least until we are able to definitively exclude any kind of preocclusive large vessel intracranial disease or significant cardiac thrombus that may r equire a different type of treatment altogether. She has a brain MRI, MRA, echocardiogram, and carot id Doppler planned for tomorrow. We will check a sedimentation rate and given the headache as well a s B12 level given the neuropathy and confusion. Check B1 level as well. I think it is reasonable to go ahead and add some IV thiamine to her regimen. Thank you for the consult. We will continue to follow with you. CIRO/NIRMAL Voice ID: [id number] Report ID: [id number]
[2020-03-28 05:01] LABS: Creatine Phosphokinase 114 U/L (26-192); HDL Cholesterol 38 mg/dL (40-60); LDL Cholesterol, Calculated 118 (<130); Troponin I < 0.02 ng/mL (0.0-0.045)
[2020-03-28] MEDS: LEVOTHYROXINE SOD 0.05 MG TABLET PO SCH (05:51)
[2020-03-28 07:40] LABS: Albumin 3.6 g/dL (3.4-5.0); Bilirubin Direct 0.1 mg/dL (0-0.2); Bilirubin Total 0.5 mg/dL (0.2-1.0); Protein, Total 7.4 g/dL (6.4-8.2)
--- NOTE | 2020-03-28 10:09 | RAD REPORT ---
EXAM DESCRIPTION: MRI - Brain W/Wo Cont - 03/28/2020 9:37 am CLINICAL HISTORY: R/O STROKE, slurred speech, stroke-like symptoms COMPARISON: MRA Head Wo Cont dated 03/28/2020; MRA Neck W/Wo Cont dated 03/28/2020; Ct Stroke Brain Wo Cont dated 03/27/2020 TECHNIQUE: Sagittal and axial T1-weighted images were obtained. Axial PD/heavily T2-weighted and T2- FLAIR images were obtained along with axial DWI/ADC mapping sequences. Coronal heavily T2 weighted s equence obtained. Axial and coronal post-contrast T1-weighted images were also obtained. A 20 ml Mul tihance contrast following utilized. FINDINGS: No intracranial hemorrhage, acute mass or acute infarction. There is no edema or shift of midline structures. No extra-axial fluid collections. Ortiz-matter/white matter junction is preserved . Signal voids are seen as a normal finding in the major intracranial vessels. No significant atroph y changes for patient age. Nonenhancing T2/IR hyperintensities in the cerebral white matter are typic al for chronic ischemic change. This is mild for age. Ventricles are normal. In the anterior aspect o f the left middle cranial fossa, discrete from the temporal lobe, there is a 15 millimeter mass that is hyperintense on T1, T2 and IR imaging. This is hypointense on diffusion-weighted imaging. Post-contrast images show normal enhancement. No dural thickening. No enhancement of the left middle cranial fossa mass. On CT imaging the mass is seen to be densely calcified. This is most likely a sma ll fully calcified meningioma of no clinical significance. Mastoid air cells and paranasal sinuses are clear. IMPRESSION: No acute infarction or other acute intracranial finding. Mild chronic ischemic change and no significant atrophy noted.
--- NOTE | 2020-03-28 10:11 | RAD REPORT ---
EXAM DESCRIPTION: MRI - MRA Neck W/Wo Cont - 03/28/2020 9:37 am CLINICAL HISTORY: Slurred speech, stroke-like symptoms COMPARISON: CT head March 27, MRI brain March 28, MRA head March 28 TECHNIQUE: MR angiography of the cervical vasculature performed. Coronal imaging plane acquisition u tilized. A MultiHance contrast volume was utilized. Coronal reformatted images were generated and re viewed. Vertical axis 3D rotational projections obtained using maximum intensity projection protocol. FINDINGS: Aortic arch is 3 vessel configuration with no origins stenosis. Right vertebral artery is dominant with no origins stenosis. The smaller left vertebral artery origin is partially obscured. No dissection or stenosis identifiable. The internal carotid arteries are tortuous but without dissecti on, stenosis or significant finding. No aneurysm or vascular malformation. IMPRESSION: MRA neck imaging shows no significant or suspicious finding.
[2020-03-28] MEDS: THIAMINE 200 MG/2 ML INJ IVP SCH (11:19)
[2020-03-28] MEDS: SOTALOL HCL 80 MG TAB PO SCH ×2 (11:19→21:25)
[2020-03-28] MEDS: ATORVASTATIN 80 MG TAB PO SCH (11:19)
--- NOTE | 2020-03-28 12:20 | RAD REPORT ---
EXAM DESCRIPTION: US - CP - 03/28/2020 10:47 am CLINICAL HISTORY: Transient cerebral Ischemic Attack COMPARISON: MRA Neck W/Wo Cont dated 03/28/2020 TECHNIQUE: Real-time sonographic evaluation of bilateral carotid and vertebral systems was performed . Ortiz scale and Doppler interrogation were performed with waveform tracing bilaterally. FINDINGS: Normal high resistance waveforms are noted in both external carotid arteries. The common c arotid arteries and internal carotid arteries show normal low resistance waveforms. Carotid artery tortuosity noted. Calcified plaquing changes are present at carotid bulb and in the pr oximal left ICA. On visual inspection no significant degree of luminal narrowing is identifiable. Pea k systolic and end diastolic velocity values and the ICA/CCA ratios are in the non-hemodynamically si gnificant range. Antegrade flow seen in both vertebral arteries. Velocity values and ratios were recorded and are retained in the patient's imaging records. IMPRESSION: Mild plaquing changes are present without significant luminal narrowing No evidence of a hemodynamically significant stenosis.
--- NOTE | 2020-03-28 12:26 | RAD REPORT ---
EXAM DESCRIPTION: MRI - MRA Head Wo Cont - 03/28/2020 8:46 am CLINICAL HISTORY: Slurred speech, stroke-like symptoms COMPARISON: CT head March 27 TECHNIQUE: Axial and coronal 3D [id number] image acquisition was performed. 3D rotational images were generated with source and reconstruction images reviewed. Horizontal and vertical axis rotation al views generated using MIP protocol. FINDINGS: No aneurysm or vascular malformation identified. No named branch occlusion, significant st enosis, vasculitis or other concerning finding. Major venous sinuses are patent. IMPRESSION: MRA head exam shows no significant or suspicious finding.
[2020-03-28] MEDS ORDERED: RIVAROXABAN 10 MG TABLET PO SCH (17:00)
[2020-03-28] MEDS: NA CHLORIDE 0.9% 1,000 ML IV SCH ×2 (18:06→22:05)
--- NOTE | 2020-03-28 21:30 | PN ---
Date of Progress Note: 03/28/2020 Time: 2100. Reason: TIA. Interval History: Patient is stable. Symptoms have resolved. She has remained asymptomatic through out the day today. Workup so far is unremarkable. Echo is still pending and a Cardiology consult is pending. Carotid Doppler had no stenosis. Brain MRI, no stroke. There is an abnormality in the le ft middle cranial fossa consistent with a small incidental calcified meningioma that is likely of lit tle significance. MRA neck normal. Laboratory Data: Normal sedimentation rate. B1 pending, B12 normal. LDL 118. She has atorvastatin at home, she should be taking, but she says her joints hurt and she thinks maybe it might be the atorvastatin, but it might just be that she has arthritis as well, so she is on inte nsive statin therapy now. I reviewed with the patient that that is something that she needs to cindy nue and if the medications are poorly tolerated, then she needs to perhaps be on a different type of statin altogether. She has seen Dr. Olivera in the past as well for the history of the AFib, and she states that he had recommended external LINQ device to monitor for paroxysmal AFib. Physical Examination: She is awake, alert, oriented. No aphasia. No dysarthria. Pupils reactive. Ocular motion full. F ields full. Strength full. Sensation decreased distally. Reflexes suppressed. Toes downgoing. Impression: Transient ischemic attack. Plan: I would continue the Xarelto and intensive statin therapy as you have done. I do not know if she would benefit from addition of antiplatelet agent. I would not recommended it, but we will see w hat the results of the echo demonstrate and what Cardiology's opinion is. From a nervous system enma dpoint, if she remains stable overnight and Cardiology has no active issues, I think she could safely be discharged to home tomorrow. She can follow up in the clinic in 1-2 weeks post discharge and we will consider outpatient EEG to evaluate for the remote possibility of complex partial seizure genera ting overall symptom complex. Thank you for the consult. CIRO/NIRMAL Voice ID: [id number] Report ID: [id number]
[2020-03-29] MEDS: LEVOTHYROXINE SOD 0.05 MG TABLET PO SCH (06:04)
--- NOTE | 2020-03-29 06:12 | EKG ---
Test Date: 2020-03-27 Test Time: 15:46:25 After School Program Assistant: PAULA MEASUREMENT RESULTS: Intervals: Rate: 91 MD: 186 QRSD: 94 QT: 374 QTc: 460 [place]: P: 22 MD: 186 QRS: -43 T: 41 INTERPRETIVE STATEMENTS: Normal sinus rhythm Left axis deviation Abnormal ECG Compared to ECG 09/01/2019 10:52:42 Left-axis deviation now present First degree AV block no longer present Prolonged QT interval no longer present Electronically Signed On 03-29-20 06:09:16 POLE FRAMER by Antony Cary
--- NOTE | 2020-03-29 07:39 | HP ---
Date of Admission: 03/27/2020 Chief Complaint: Trouble with speech. History Of Present Illness: This is a 74-year-old very pleasant female patient with a history of atr ial fibrillation on chronic anticoagulation therapy using Xarelto, came into emergency room with abov e-mentioned complaints. Patient reported that yesterday which is on 03/26/2020, she had this episode of slurred speech and that lasted for about 30 minutes or so and problem resolved after that on its own. She normally takes her Xarelto in the evening time, but she went to sleep and forgot to take he r Xarelto on 03/26/2020 during evening hours and today, around 2 p.m., she had another episode of slu rred speech and at this time, it just lasted for 5-10 minutes with some associated headache. No ting ling, numbness of hands or legs. No weakness of hands or legs. She took her dose of Xarelto at that time around 2 p.m. today and subsequently was brought to the emergency room. After she was evaluate d in the ER, she was admitted to the hospital with TIA problem. When I saw her she was still in the emergency room, she was back to her baseline and has not had any more recurrence of symptoms. No pal pitation. No chest pain. No shortness of breath. Allergies: NO KNOWN ALLERGIES. Medications: Atorvastatin 10 mg daily with evening meal, Caltrate plus D 1 tab 2 times a day, furose mide 20 mg daily as needed for leg swelling, levothyroxine 50 mcg p.o. daily, potassium chloride 20 m Eq 1 tablet daily as needed with furosemide, Xarelto 20 mg daily with evening meal, and sotalol 80 mg 2 times a day. Review of Systems: VP PUBLISHER DEVELOPMENT: As mentioned above. All other systems reviewed and negative. Past Medical History: Significant for hypothyroidism, type 2 diabetes mellitus, pulmonary nodules, o bstructive sleep apnea, hypertension, hyperlipidemia, paroxysmal atrial fibrillation, diverticulosis, osteoarthritis. Past Surgical History: Significant for ablation for atrial fibrillation in 2017 and a hysterectomy. Family History: Father , had dementia, seizure, and stroke. Mother also of stroke. Sister alive and well. Social History: Prior history of smoking, not at present time. Use of alcohol negative. Physical Examination: Vital Signs: When she came into emergency room, initial vital signs temperature 98, pulse 75, respir atory rate 15, blood pressure 156/94, oxygen saturation 99%. Height 5 feet 6 inches, weight 245 poun ds. General: Awake, alert, oriented, not in distress. HEENT: Head atraumatic, normocephalic. Conjunctivae nonerythematous. Sclerae white. Mouth, no thr ush or edema noted. Ears/Nose, no mass, lesion, discharge noted. Neck: Supple. No JVD, lymph nodes, bruit, thyromegaly noted. Lungs: Bilateral good equal air entry. Clear to auscultation. No rhonchi. No rales. Heart: Normal heart sounds, no murmur or gallop. Abdomen: Soft, bowel sounds normal. No guarding, rigidity, tenderness, mass, hepatosplenomegaly, dis tention, or bruit noted. Extremities: No leg edema. No calf tenderness. Skin: No rash, ulcer, cellulitis. Lymphatics: No lymph node enlargement in neck, supraclavicular, infraclavicular region. Neuro: No focal neurological deficit. Chest: Unremarkable. External Genitalia: Deferred. Rectal: Deferred. Laboratory Data: White count 10.3, hemoglobin 14.4, platelets 210. INR 1.91. Sodium 134, potassium 3.6, chloride 98, bicarb 31, BUN 20, creatinine 0.83, glucose 175. COVID-19 test negative. Imaging: Chest x-ray shows bilateral multiple pulmonary nodules. CAT scan of the head, no acute intracranial changes. Impression: 1.Transient ischemic attack. 2.Paroxysmal atrial fibrillation. 3.Pulmonary nodules. 4.Type 2 diabetes mellitus. 5.Hypothyroidism. 6.Obstructive sleep apnea. 7.Hypertension. 8.Hyperlipidemia. 9.Diverticulosis. 10.Osteoarthritis. Plan: We will go ahead and admit patient to hospital for further evaluation and management of this p roblem. Continue home medications per order including a sotalol and Xarelto. Consult neurologist as well as consult mailmaster. Patient will have MRI per stroke protocol. Carotid Doppler, echocard iogram, and further plan of treatment will depend on results and recommendation from consultants. De tails of plan of treatment discussed with patient. RADHA/MODL Voice ID: [id number]
[2020-03-29] MEDS: ATORVASTATIN 80 MG TAB PO SCH (08:13)
[2020-03-29] MEDS: THIAMINE 200 MG/2 ML INJ IVP SCH (08:14)
--- NOTE | 2020-03-29 08:39 | PN ---
Date of Progress Note: 03/28/2020 Subjective: The patient was seen this morning for followup. No new complaints or problems reported. No recurrence of slurred speech problem. No tingling, numbness, or weakness of extremities. Objective: Vital Signs: Reviewed. HEENT: Unremarkable. Lungs: Clear to auscultation. Heart: Sounds normal. Abdomen: Soft. Bowel sounds normal. No guarding, rigidity, tenderness, distention. Extremities: No leg edema. Laboratory Data: Vitamin B12 of 785, LDL 118. Troponin less than 0.02. TSH 0.91. Imaging: MRI brain per stroke protocol was negative for any acute changes. Carotid Doppler shows some mild atherosclerotic plaque, no hemodynamically significant stenotic lesion. Echocardiogram result pending. Impression: 1. Transient ischemic attack. 2. Paroxysmal atrial fibrillation. 3. Hypertension. 4. Type 2 diabetes mellitus. 5. Pulmonary nodules, chronic, stable. Plan: We will go ahead and continue current medical management. Continue to follow with neurologist and rivet spinner, Dr. Cary. Depending on echocardiogram and rivet spinner's recommendation, we will decide regarding possible discharge. Input from Neurology is appreciated. RADHA/MODL Voice ID: [id number] Report ID: [id number] LIZETH
--- NOTE | 2020-03-29 08:45 | ECHO ---
HEIGHT: 5 ft 6 in WEIGHT: 245 lb 0 oz DATE OF STUDY: 03/28/[address]: Aba Garvey NP 2-DIMENSIONAL: YES M.MODE: YES DOPPLER: YES COLOR FLOW: YES TDS: NO PORTABLE: NO DEFINITY: NO BUBBLE STUDY: NO DIAGNOSIS: TRANSISENT CEREBRAL ISCHEMIC ATTACK CARDIAC HISTORY: CATHERIZATION: NO SURGERY: NO PROSTHETIC VALVE: NO PACEMAKER: NO MEASUREMENTS (cm) DIASTOLIC (NORMALS) SYSTOLIC (NORMALS) IVSd 1.2 (0.6-1.2) LA Diam 2.7 (1.9-4.0) LVEF 70% LVIDd 4.0 (3.5-5.7) LVIDs 2.4 (2.0-3.5) %FS 39% LVPWd 1.2 (0.6-1.2) Ao Diam 2.9 (2.0-3.7) 2 DIMENSIONAL ASSESSMENT: RIGHT ATRIUM: NORMAL LEFT ATRIUM: NORMAL RIGHT VENTRICLE: NORMAL LEFT VENTRICLE: NORMAL TRICUSPID VALVE: NORMAL MITRAL VALVE: MITRAL ANNULAR CALCIFICATION PULMONIC VALVE: NORMAL AORTIC VALVE: NORMAL PERICARDIAL EFFUSION: NONE AORTIC ROOT: NORMAL LEFT VENTRICULAR WALL MOTION: NORMAL DOPPLER/COLOR FLOW: NORMAL COMMENTS: MITRAL ANNULAR CALCIFICATION. NO THROMBUS. NORMAL LEFT VENTRICULAR SIZE AND FUNCTION. TECHNOLOGIST: Brittany NEGRON
[2020-03-29] MEDS ORDERED: SOTALOL HCL 80 MG TAB PO SCH (09:00)
[2020-03-29 10:24] VITALS: BP 126/69; TEMP 97.2
[2020-03-29 11:27] VITALS: O2SAT 95
--- NOTE | 2020-03-29 20:38 | CON ---
Date of Consultation: 03/29/2020 Reason For Consultation: History of TIA and atrial fibrillation. History Of Present Illness: Ms. Ladd is a 74-year-old woman who has a history of hypertension, atrial fibrillation. She is status post cardioversion and ablation by Dr. George and Dr. Nieto. She has a h istory of hypertension, chronic systolic congestive heart failure with an ejection fraction of 42% in the past. Came in with a TIA, mainly complained of some speech impediment where she states she star pranav mumbling and not making any sense. So far she has had an extensive cardiac workup including MRAs , MRIs, carotids, echocardiogram, all of which have been normal. She has been followed by Dr. Matias as an outpatient. EEG planned down the road. Past Medical History: As stated above. Allergies: NONE. Review of Systems: Negative. Social History: Negative. Family History: Noncontributory. Medications: At home include Lipitor, Xarelto, sotalol, Lasix as needed, and thyroid. Physical Examination: Vital Signs: Stable, afebrile, sinus rhythm. HEENT: Negative. Neck: Supple with no bruit. Chest: Clear to auscultation and percussion. Cardiac: Exam revealed a regular rhythm and rate. No murmurs, gallops, or rubs. Abdomen: Benign. Extremities: Revealed no clubbing, cyanosis, or edema. Diagnostic Data: EKG was normal sinus rhythm, nonspecific changes. INR was 1.91. Glucose was 175. Echocardiogram in August of 2019 showed an ejection fraction of 42%, cardioverted to sinus rhythm at t hat time. MRA was negative. MRI was negative. Carotid was negative. Echo was unremarkable as far as thrombus is concerned. The case was discussed with Dr. Lopez. I agree with her present regimen. There is an EEG pending as an outpatient. Certainly adding a baby aspirin or Plavix down the road if symptoms reoccur, would be reasonable. She can go home today. I will see her in the office in the next couple of weeks. DEMETRA/NIRMAL Voice ID: [id number] Report ID: [id number]
--- NOTE | 2020-05-02 15:57 | DS ---
Date of Discharge: 03/29/2020 Disposition: Discharged to go home. Physical Examination: HEENT: Unremarkable. Lungs: Clear to auscultation. Heart: Sounds normal. Abdomen: Soft. Bowel sounds normal. No guarding, rigidity, tenderness, distention. Extremities: No leg edema. Discharge Medications And Instructions: 1.Continue current medications that are prior home medication, except stop atorvastatin 10 mg dose a nd take new dose which is higher dose of atorvastatin 80 mg 1 tablet by mouth daily. 2.Folic acid 1 mg by mouth daily. 3.Follow up at my office on 04/04/2020. 4.Follow with Dr. Matias and Dr. Cary in 2 weeks. Hospital Course: This is a 74-year-old female patient, who was admitted to the hospital with trouble with her speech. Please see dictated H and P for more information. After the patient was evaluated in the ER, she was admitted to hospital with TIA. She has underlying history of paroxysmal atrial f ibrillation, on chronic anticoagulation therapy. After the patient was evaluated in the ER, she was admitted to the hospital. Neurology consultation was obtained from Dr. Matias. The patient did not h ave any recurrence of her symptoms during this hospital stay. Her initial CAT scan of the brain was negative for any acute intracranial changes. Chest x-ray showed bilateral multiple pulmonary nodules , which are chronic finding for her. Her white count 10.3, hemoglobin 14.4, platelets 210. Her sed rate was 23. Sodium 134, potassium 3.6, chloride 98, bicarb 31, BUN 20, creatinine 0.83, glucose 175 . Liver function tests unremarkable. Troponin less than 0.02. Her LDL was 118, total cholesterol 1 78, triglyceride 110, TSH 0.91, B12 785. A1c 6.3. Her COVID-19 test was negative. MRI of the brain was done and MRA was done of intracranial arteries. MRA was negative for any acute or suspicious fi nding. MRI of the brain was negative for any acute stroke, mild chronic ischemic changes noted. Ech ocardiogram revealed normal ejection fraction 70%. It was unremarkable echocardiogram. No evidence of left ventricular thrombus and carotid Doppler revealed mild plaquing without significant narrowing . The patient was discharged to go home in stable condition with above-mentioned medications and ins tructions. Neurology and Cardiology consultation were obtained during this hospital stay. Final Diagnoses: 1.Transient ischemic attack. 2.Paroxysmal atrial fibrillation. 3.Pulmonary nodules. 4.Type 2 diabetes mellitus. 5.Hypothyroidism. 6.Obstructive sleep apnea. 7.Hypertension. 8.Hyperlipidemia. 9.Diverticulosis. 10.Osteoarthritis, multiple sites. RADHA/MODL Voice ID: [id number] Report ID: [id number]
== END 2020-03-29 13:32 | disposition home or self-care (01) ==
LOC: ER 15:08 → ERHOLD 17:08 → 2ND 19:56
PROVIDERS: ADMIT Internal Medicine; ATTEND Internal Medicine
DX: G45.9 Transient cerebral ischemic attack, unspecified (principal); I48.0 Paroxysmal atrial fibrillation; R91.8 Other nonspecific abnormal finding of lung field; I11.0 Hypertensive heart disease with heart failure; Z20.822 Contact with and (suspected) exposure to COVID-19; I50.22 Chronic systolic (congestive) heart failure; Z79.01 Long term (current) use of anticoagulants; E03.9 Hypothyroidism, unspecified; G47.30 Sleep apnea, unspecified; E11.9 Type 2 diabetes mellitus without complications; E78.5 Hyperlipidemia, unspecified; M19.90 Unspecified osteoarthritis, unspecified site; Z87.891 Personal history of nicotine dependence; R94.31 Abnormal electrocardiogram [ECG] [EKG]
CPT/HCPCS: 36415; 70450; 70544; 70549; 70553; 71045; 80048; 80061; 80076; 82550; 82553; 82607; 82947; 83036; 84425; 84443; 84484; 85025; 85610; 85652; 85730; 93005; 93306; 93880; 94760; 96365; 96366; 99285; A9577; G0378; J3411; J7030; U0003